=== PATIENT | male | born 1955 | race African-American/Black ===

== ENCOUNTER 2017-03-04 06:18 | Emergency (ER) | payer MEDICAID ==
[~2017-03-04] VITALS: Ht 172.7 cm; Wt 81.6 kg
[2017-03-04 06:36] VITALS: BP 142/82
== END 2017-03-04 07:35 | disposition home or self-care (01) ==
LOC: ER 06:19
DX: J02.9 Acute pharyngitis, unspecified (principal); I10 Essential (primary) hypertension
CPT/HCPCS: 71020